=== PATIENT | male | born 1985 | race Caucasian/White ===

== ENCOUNTER 2018-02-06 21:53 | Emergency (ER) | payer OTHER ==
[~2018-02-06] VITALS: Ht 177.8 cm; Wt 86.2 kg
[~2018-02-06 21:53] MED LIST: ACETAMINOPHEN-1 EAC1 PO; AMOXICILLIN875 MG PO; AURALGAN EAR DR14 ML OTIC; BACTRIM DS TAB1 EACH PO; BACTROBAN NASAL1 GM NASAL; CIPROFLOXACIN500 M1 PO; CORTISPORIN OTI10 M2 OTIC; DESYREL50 MG PO; FLAGYL500 MG PO; IBUPROFEN 800800 MG PO; MEDROLDOSEPACK PO; NORCO 5-325 TA1 EACH PO; PENICILLIN VK250 MG PO; PENICILLIN VK500 M1 PO; PERCOCET 5-3251 EACH PO; PRAZOSIN 1 MG CA1 MG PO; PREDNISONE 10 M10 MG PO; PROAIR HFA8.5 GM INH; PROMETHAZINE D480 ML PO; PTSD MED; REMERON15 M1 PO; SERTRALINE HCL50 MG PO; TESSALON PERLE100 MG PO; ULTRAM 50MG TAB50 MG PO; VICODIN 5-5001 EACH PO; VISTARIL 25 MG25 M1 PO; ZANTAC 150MG T150 M1 PO; ZPAK PO; ZYRTEC 10 MG TA10 MG PO
[2018-02-06 22:01] VITALS: BP 141/68
[2018-02-06] MEDS ORDERED: ROBAXIN500 MG PO (22:07)
[2018-02-06] MEDS ORDERED: IBUPROFEN 800800 M1 PO (22:07)
== END 2018-02-06 22:15 | disposition home or self-care (01) ==
LOC: M.ERS 21:53
DX: S46.811A Strain of other muscles, fascia and tendons at shoulder and upper arm level, right arm, initial encounter (principal); I48.91 Unspecified atrial fibrillation; F17.210 Nicotine dependence, cigarettes, uncomplicated; Z88.4 Allergy status to anesthetic agent; Z91.041 Radiographic dye allergy status; X50.0XXA Overexertion from strenuous movement or load, initial encounter; Y92.89 Other specified places as the place of occurrence of the external cause; Y99.0 Civilian activity done for income or pay; Y99.8 Other external cause status

== ENCOUNTER 2018-02-08 22:21 | Emergency (ER) | payer OTHER ==
[~2018-02-08] VITALS: Ht 177.8 cm; Wt 86.2 kg
[~2018-02-08 22:21] MED LIST changes: +IBUPROFEN 800800 M1 PO; +ROBAXIN500 MG PO
[2018-02-08] MEDS ORDERED: MEDROLDOSEPACK PO (23:14)
[2018-02-08] MEDS ORDERED: ULTRAM 50MG TAB50 MG PO (23:14)
[2018-02-08 23:32] VITALS: BP 132/90
== END 2018-02-08 23:33 | disposition home or self-care (01) ==
LOC: M.ERS 22:21
DX: M94.0 Chondrocostal junction syndrome [Tietze] (principal); I48.91 Unspecified atrial fibrillation; Z86.14 Personal history of Methicillin resistant Staphylococcus aureus infection

== ENCOUNTER 2018-07-13 18:57 | Emergency (ER) | payer OTHER ==
[~2018-07-13] VITALS: Ht 177.8 cm; Wt 91.2 kg
[2018-07-13] MEDS ORDERED: POLYMYXIN B/TMP10 ML OTIC (21:22)
[2018-07-13] MEDS ORDERED: NORCO 5-325 TA1 EAC1 PO (21:22)
[2018-07-13 21:37] VITALS: BP 116/83
== END 2018-07-13 21:37 | disposition home or self-care (01) ==
LOC: M.ERS 18:57
DX: T16.2XXA Foreign body in left ear, initial encounter (principal); I48.91 Unspecified atrial fibrillation; F17.210 Nicotine dependence, cigarettes, uncomplicated; Z88.4 Allergy status to anesthetic agent; Z91.041 Radiographic dye allergy status; X58.XXXA Exposure to other specified factors, initial encounter; Y93.89 Activity, other specified; Y92.89 Other specified places as the place of occurrence of the external cause; Y99.8 Other external cause status

== ENCOUNTER 2018-10-20 12:33 | Emergency (ER) | payer OTHER ==
[~2018-10-20] VITALS: Ht 177.8 cm; Wt 89.8 kg
[~2018-10-20 12:33] MED LIST changes: +NORCO 5-325 TA1 EAC1 PO; +POLYMYXIN B/TMP10 ML OTIC
[2018-10-20] MEDS ORDERED: LIDODERM1 EACH TRANSDERM (14:38)
[2018-10-20] MEDS ORDERED: NAPROSYN500 MG PO (14:38)
[2018-10-20] MEDS ORDERED: TRAMADOL 50 MG50 MG PO (14:38)
[2018-10-20 14:48] VITALS: BP 130/91
== END 2018-10-20 14:48 | disposition home or self-care (01) ==
LOC: M.ERS 12:33
DX: M54.42 Lumbago with sciatica, left side (principal); M25.552 Pain in left hip; F17.210 Nicotine dependence, cigarettes, uncomplicated; I48.91 Unspecified atrial fibrillation; Z88.4 Allergy status to anesthetic agent; Z91.041 Radiographic dye allergy status

== ENCOUNTER 2019-06-25 23:03 | Emergency (ER) | payer OTHER ==
[~2019-06-25] VITALS: Ht 175.3 cm; Wt 88.5 kg
--- NOTE | ~2019-06-25 | EKG ---
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
[~2019-06-25 23:03] MED LIST changes: +LIDODERM1 EACH TRANSDERM; +NAPROSYN500 MG PO; +TRAMADOL 50 MG50 MG PO
[2019-06-25 23:36] LABS: ABSOLUTE BASOPHILS 0.1 thou/uL (0.0-0.2); ABSOLUTE EOSINOPHILS 0.3 thou/uL (0.0-0.7); ABSOLUTE MONOCYTES 0.4 thou/uL (0.0-1.2); ABSOLUTE NEUTROPHILS 3.3 thou/uL (1.6-8.1); BASOPHILS 0.7 %; EOSINOPHILS 3.3 %; HEMOGLOBIN 15.1 gm/dL (14.0-18.0); LYMPHOCYTES 49.9 %; MCH 30.1 pg (26.0-34.0); MCHC 34.3 g/dL (28.0-37.0); MCV 87.6 fL (80.0-100.0); MONOCYTES 4.9 %; MPV 8.1 fl. (7.2-11.1); NUCLEATED RBCS 0 /100WBC; PLATELET COUNT* 252 thou/uL (150-400); POLYS 41.2 %; RBC 5.02 mil/uL (4.50-6.00); RDW-CV 14.5 % (10.5-14.5)
[2019-06-25 23:45] LABS: CALCIUM 8.7 mg/dL (8.5-10.1); CREATININE 1.1 mg/dL (0.6-1.3); POTASSIUM 3.4 mmol/L (3.5-5.1)
[2019-06-25 23:49] LABS: PROTIME 10.4 Seconds (9.20-11.50)
[2019-06-25 23:56] LABS: TOTAL BILIRUBIN 0.3 mg/dL (<0.1-1.0); TOTAL PROTEIN 7.9 g/dL (6.4-8.2)
[2019-06-26 01:49] LABS: URINE BILIRUBIN NEGATIVE (Negative); URINE BLOOD NEGATIVE (Negative); URINE CLARITY CLEAR; URINE COLOR YELLOW; URINE GLUCOSE-RANDOM NEGATIVE (Negative); URINE KETONES NEGATIVE (Negative); URINE LEUKOCYTES-REFLEX NEGATIVE (Negative); URINE NITRITE-REFLEX NEGATIVE (Negative); URINE PROTEIN NEGATIVE (Negative); URINE UROBILINOGEN 0.2 E.U./dl (0.2-1.0)
[2019-06-26 02:26] VITALS: BP 124/84
== END 2019-06-26 02:48 | disposition home or self-care (01) ==
LOC: M.ERS 23:03
PROVIDERS: Emergency Medicine
DX: R07.89 Other chest pain (principal); I48.91 Unspecified atrial fibrillation; F17.210 Nicotine dependence, cigarettes, uncomplicated; Z91.041 Radiographic dye allergy status; Z88.8 Allergy status to other drugs, medicaments and biological substances; Z86.14 Personal history of Methicillin resistant Staphylococcus aureus infection